=== PATIENT | female | born 1975 | race Two or more races ===

== ENCOUNTER 2019-07-28 18:50 | Emergency (ER) | payer OTHER ==
[~2019-07-28] VITALS: Ht 157.5 cm; Wt 71.7 kg
[~2019-07-28 18:50] MED LIST: HYDR50TA15 PO; MOME45CR3 TOP
[2019-07-28 19:03] VITALS: Ht 157.5 cm; Wt 71.7 kg
[2019-07-28] MEDS ORDERED: DIPHENHYDRAMINE 50 MG CAP PO ONE (20:30)
[2019-07-28 20:50] VITALS: BP 154/81; PULSE 108; RESP 18
[2019-07-28] MEDS ORDERED: hydrOXYzine HCL 25 MG TAB PO ONE (21:00)
== END 2019-07-28 21:33 | disposition home or self-care (01) ==
LOC: FTE 18:50
DX: L30.9 Dermatitis, unspecified (principal); F41.9 Anxiety disorder, unspecified; Z73.3 Stress, not elsewhere classified
CPT/HCPCS: Z7610 ×2; 99283